=== PATIENT | female | born 1945 | race Caucasian/White ===

== ENCOUNTER → 2019-03-03 | Outpatient (CLI) | payer OTHER ==
[~2019-03-03] MED LIST: (NONE)4 GM PO; ASPIRIN81 M1 PO; CITRACAL PO; FISH OIL PO; PRAMIPEXOLE D0.25 MG PO; PRESERVISION A1 EAC1 PO; TOPROL XL25 MG PO; VITAMIN B COMP1 EAC1 PO; VITAMIN D3 PO; [UNRECOGNIZED DRUG - OTHER] PO
[2019-03-03 10:10] VITALS: BP 136/71
== END | disposition home or self-care (01) ==
LOC: INJECTION 10:00
DX: M81.0 Age-related osteoporosis without current pathological fracture (principal); I48.91 Unspecified atrial fibrillation; Z87.891 Personal history of nicotine dependence; Z79.899 Other long term (current) drug therapy

== ENCOUNTER → 2019-10-08 | Outpatient (CLI) | payer OTHER ==
[2019-10-08 12:54] LABS: CREATININE 1.25 mg/dL (0.55-1.02); POTASSIUM 4.4 mmol/L (3.5-5.1)
== END | disposition home or self-care (01) ==
LOC: LAB 12:07
PROVIDERS: Obstetrics & Gynecology Obstetrics
DX: M81.0 Age-related osteoporosis without current pathological fracture (principal)

== ENCOUNTER → 2019-10-13 | Outpatient (CLI) | payer OTHER ==
[2019-10-13 11:03] VITALS: BP 136/56
== END | disposition home or self-care (01) ==
LOC: INJECTION 01:44
DX: M81.0 Age-related osteoporosis without current pathological fracture (principal); I48.91 Unspecified atrial fibrillation; Z87.891 Personal history of nicotine dependence

== ENCOUNTER → 2020-01-19 | Outpatient (CLI) | payer OTHER | END | disposition home or self-care (01) | LOC: RAD 13:52 | PROVIDERS: ATTEND Obstetrics & Gynecology Obstetrics | DX: M85.89 Other specified disorders of bone density and structure, multiple sites (principal); Z78.0 Asymptomatic menopausal state ==

== ENCOUNTER → 2020-04-14 | Outpatient (CLI) | payer OTHER ==
[2020-04-14 11:27] LABS: CREATININE 1.17 mg/dL (0.55-1.02); POTASSIUM 3.8 mmol/L (3.5-5.1)
[2020-04-14 12:00] VITALS: BP 141/64
== END | disposition home or self-care (01) ==
LOC: INJECTION 00:07
PROVIDERS: ATTEND Obstetrics & Gynecology Obstetrics
DX: M81.0 Age-related osteoporosis without current pathological fracture (principal); I48.91 Unspecified atrial fibrillation; Z87.891 Personal history of nicotine dependence

== ENCOUNTER → 2020-10-12 | Outpatient (CLI) | payer OTHER ==
[2020-10-12 13:00] LABS: CREATININE 1.3 mg/dL (0.55-1.02); POTASSIUM 3.9 mmol/L (3.5-5.1)
== END | disposition home or self-care (01) ==
LOC: LAB 12:12
PROVIDERS: ATTEND Obstetrics & Gynecology Obstetrics
DX: M81.0 Age-related osteoporosis without current pathological fracture (principal)

== ENCOUNTER → 2020-10-13 | Outpatient (CLI) | payer OTHER ==
[2020-10-13 10:53] VITALS: BP 132/61
== END | disposition home or self-care (01) ==
LOC: INJECTION 00:13
PROVIDERS: ATTEND Obstetrics & Gynecology Obstetrics
DX: M81.0 Age-related osteoporosis without current pathological fracture (principal)

== ENCOUNTER → 2021-04-14 | Outpatient (CLI) | payer OTHER ==
[2021-04-14 10:38] VITALS: BP 139/52
== END | disposition home or self-care (01) ==
LOC: INJECTION 10:30
PROVIDERS: ATTEND Obstetrics & Gynecology Obstetrics
DX: M81.0 Age-related osteoporosis without current pathological fracture (principal); I48.91 Unspecified atrial fibrillation

== ENCOUNTER → 2021-10-13 | Outpatient (CLI) | payer OTHER ==
[2021-10-13 10:54] VITALS: BP 129/63
== END | disposition home or self-care (01) ==
LOC: INJECTION 10:48
PROVIDERS: ATTEND Obstetrics & Gynecology Obstetrics
DX: M81.0 Age-related osteoporosis without current pathological fracture (principal); I48.91 Unspecified atrial fibrillation; Z98.890 Other specified postprocedural states

== ENCOUNTER → 2022-02-27 | Outpatient (CLI) | payer OTHER ==
[2022-02-27 11:45] LABS: BUN 22 mg/dl (7-24); CHLORIDE 105 mmol/L (98-107); CREATININE 1.02 mg/dL (0.55-1.02); POTASSIUM 4.1 mmol/L (3.5-5.1); SODIUM 137 mmol/L (136-145)
== END | disposition home or self-care (01) ==
LOC: RAD 10:00 → LAB 10:30
PROVIDERS: ATTEND Obstetrics & Gynecology Obstetrics
DX: M85.852 Other specified disorders of bone density and structure, left thigh (principal); M81.0 Age-related osteoporosis without current pathological fracture; Z78.0 Asymptomatic menopausal state

== ENCOUNTER → 2022-04-18 | Outpatient (CLI) | payer OTHER ==
[~2022-04-18] MED LIST changes: +PROLIA60 MG/M1 SC
[2022-04-18 10:56] VITALS: BP 137/53
== END | disposition home or self-care (01) ==
LOC: INJECTION 04:06
PROVIDERS: ATTEND Obstetrics & Gynecology Obstetrics
DX: M81.0 Age-related osteoporosis without current pathological fracture (principal); I48.91 Unspecified atrial fibrillation

== ENCOUNTER → 2022-10-16 | Outpatient (CLI) | payer OTHER ==
[2022-10-16 10:58] LABS: POTASSIUM 4.1 mmol/L (3.4-5.1)
== END | disposition home or self-care (01) ==
LOC: LAB 09:54
PROVIDERS: ATTEND Obstetrics & Gynecology Obstetrics
DX: M81.0 Age-related osteoporosis without current pathological fracture (principal)

== ENCOUNTER → 2022-10-18 | Outpatient (CLI) | payer OTHER ==
[2022-10-18 10:50] VITALS: BP 104/47
== END | disposition home or self-care (01) ==
LOC: INJECTION 00:35
PROVIDERS: ATTEND Obstetrics & Gynecology Obstetrics
DX: M81.0 Age-related osteoporosis without current pathological fracture (principal)